=== PATIENT | female | born 1965 | race Caucasian/White ===

== ENCOUNTER 2017-10-31 10:13 | Emergency (ER) | payer OTHER ==
[~2017-10-31] VITALS: Ht 154.9 cm; Wt 106.3 kg
[~2017-10-31 10:13] MED LIST: ALPRAZOLAM0.25 M2 PO; CELEXA10 MG PO; CIPRO500 MG PO; CITALOPRAM HBR20 MG PO; FUROSEMIDE20 MG PO; HYDROCHLOROTHIA25 MG PO; Hydrodiuril,Oretic,E PO; LASIX20 MG PO; Motrin PO; NORCO 5/3251 TABLET PO; PROVENTIL HFA6.7 GM IH; Percocet 5/325,Endoc PO; Proventil,Ventolin H IH; TENORMIN50 MG PO; Tenormin PO; ULTRAM50 MG PO; ZESTRIL40 MG PO; Zestril,Prinivil PO
[2017-10-31] MEDS ORDERED: CLONIDINE HCL0.1 MG PO (13:46)
[2017-10-31 14:06] VITALS: BP 140/116
== END 2017-10-31 14:08 | disposition home or self-care (01) ==
LOC: EME 10:13
DX: L50.9 Urticaria, unspecified (principal); I10 Essential (primary) hypertension; J45.909 Unspecified asthma, uncomplicated; F41.9 Anxiety disorder, unspecified
CPT/HCPCS: 99281; 99284; J1100

== ENCOUNTER → 2017-12-15 | Outpatient (CLI) | payer OTHER ==
[~2017-12-15] MED LIST changes: +CLONIDINE HCL0.1 MG PO
== END | disposition home or self-care (01) ==
LOC: CDC 11:38
DX: R06.09 Other forms of dyspnea (principal); R07.9 Chest pain, unspecified
CPT/HCPCS: 93000